=== PATIENT | female | born 1965 | race Caucasian/White ===

== ENCOUNTER 2021-12-25 12:59 | Day surgery (SDC) | payer OTHER ==
[~2021-12-25] VITALS: Ht 180.3 cm; Wt 98.0 kg
--- NOTE | ~2021-12-25 | OR ---
[facility] [address], [place] [address] Draft DATE OF OPERATION: 12/25/2021 SURGEON: Malathi Concepcion MD PREOPERATIVE DIAGNOSIS: Colon screening. POSTOPERATIVE DIAGNOSIS: Normal colon to cecum, except for hypertrophied anal papillae (benign). PROCEDURE: Total colonoscopy to cecum. ANESTHESIA: Intravenous sedation, fentanyl 100 mcg and Versed 7 mg. INDICATION: This 56-year-old white woman is a patient of TL Macdonald. She is here for screening colonoscopy. She understands the risks of bleeding, infection, and perforation and wished to proceed. She has no family history of colon cancer and no symptoms currently. FINDINGS: The prep was excellent. Complete colonoscopy was undertaken to the cecum without question. She had no abnormality other than some hypertrophied anal papillae, but no polyps, diverticular formation, colitis, or cancer. DESCRIPTION OF PROCEDURE: The patient was brought to the endoscopy suite and placed in lateral decubitus position, given intravenous sedation to the point of slurred speech and nystagmus. Digital rectal examination was normal. An Olympus video colonoscope was passed in the rectum and manipulated throughout the colon ultimately intubating the cecum itself. The ileocecal valve and appendiceal orifice were normal. Scope was withdrawn from that point. Examination throughout showed no sign of abnormality, specifically no polyps, diverticular formation, colitis, or cancer. Retroflexed view of the rectum did show hypertrophied anal papillae, which were completely benign in appearance. She tolerated procedure well. She was taken to the recovery room in good condition. PATIENT NAME: MALIA BUTLER OPERATIVE REPORT DATE OF : 67 REPORT #: [id number] PHYSICIAN: MALATHI CONCEPCION MD PCP: ARA RUIZ MD REPORT IS CONFIDENTIAL AND NOT TO BE RELEASED WITHOUT AUTHORIZATION [address] [place], [place] [address] Draft CONCLUDING DIAGNOSIS: Normal colon except for hypertrophied anal papillae. PLAN: Recommend repeat colonoscopy in 10 years, sooner if symptoms should develop. She will return to the ongoing care of TL Macdonald. MD PILY Smith/JOSUÉ /[id number] cc: TL Macdonald Copies: KISHA AMOR ~ PATIENT NAME: MALIA BUTLER OPERATIVE REPORT DATE OF : 67 REPORT #: [id number] PHYSICIAN: MALATHI CONCEPCION MD PCP: ARA RUIZ MD REPORT IS CONFIDENTIAL AND NOT TO BE RELEASED WITHOUT AUTHORIZATION
[~2021-12-25 12:59] MED LIST: CALCIUM500 MG PO; CANDICIDAL CAP1 EACH PO; ZINC30 MG PO
[2021-12-25] MEDS ORDERED: VITAMIN C1000 MG PO (15:51)
--- NOTE | 2021-12-25 17:12 | NUR ---
12/25/21 1712 Kaitlynn Melton 1707- PT ARRIVES TO PACU AWAKE AND TALKING. PT REPORTS NO PAIN OR NAUSEA. RESP EVEN AND UNLABORED. OXYGEN SAT MID TO HIGH 90'S ON RA.
== END 2021-12-25 17:53 | disposition home or self-care (01) ==
LOC: OPS 12:59 → DS 13:00 → OPS 17:53
PROVIDERS: ATTEND Surgery
PROC: 0DJD8ZZ Inspection of Lower Intestinal Tract, Via Natural or Artificial Opening Endoscopic (ICD-10-PCS; principal; 2021-12-25 13:00)
DX: Z12.11 Encounter for screening for malignant neoplasm of colon (principal); D12.9 Benign neoplasm of anus and anal canal; C44.619 Basal cell carcinoma of skin of left upper limb, including shoulder; Z78.0 Asymptomatic menopausal state
CPT/HCPCS: 99153; G0500; J2250; J3010; J7121